=== PATIENT | female | born 1955 | race Caucasian/White ===

== ENCOUNTER 2017-05-24 11:51 | Inpatient (IN) | payer OTHER ==
[~2017-05-24] VITALS: Ht 172.7 cm; Wt 117.9 kg
--- NOTE | ~2017-05-24 | CNG ---
[facility] [place] [address] CYTO-NONGYN REPORT PROCEDURE Name: KELLE OCHOA Room #: 516-1 DIS IN M.R.#: [id number] Admission: 05/24/17 Date of : 59 Discharge: 06/03/17 Report #: [id number] Path Case #: [id number] CYTOPATHOLOGY REPORT COLLECTION DATE: 06/03/2017 RECEIVED DATE: 06/03/2017 SUBMITTING PHYS: Dr. Wilfredo Cason OTHER PHYS: CLINICAL HISTORY: Multifactorial peripheral neuropathy, generalized debility. SPECIMEN(S) RECEIVED: A.Pleural fluid * * * * * * * * * * * * FINAL DIAGNOSIS: A. Pleural fluid: - No malignant epithelial cells identified. - Reactive mesothelial cells and scattered predominantly chronic inflammatory cells present. (see comment) COMMENT: The patient has a history of invasive lobular carcinoma of the breast ([id number] and [id number]). Due to the patient's history, properly controlled immunohistochemical stains are performed on the cell block. Block A1: Calretinin - Stains the scattered mesothelial cells BerEp4 - Nonreactive CD68 - Highlights histiocytes AE1/AE3 - Highlights scattered mesothelial cells ER - No strong nuclear reactivity present There are no overtly malignant epithelial cells identified. Clinical and radiographic correlation is required. (CLW:wes; 06/05/2017) PATHOLOGIST: Claritza Beasley M.D. REPORT ELECTRONICALLY SIGNED BY: Claritza Beasley M.D. DATE/TIME: 06/05/2017 14:25 * * * * * * * * * * * * GROSS PATHOLOGY: A. Pleural fluid: The specimen is submitted unfixed, labeled "Kelle Ohcoa". Received by the Cytology Department is 25 mL of cloudy yellow fluid. One ThinPrep slide and a formalin fixed cell block were prepared. (clt 06.03.2017) AUDITOR IN CHARGE(S): FELIX Payne(ASCP) INITIAL CPT CODE(S): [address] [address] CYTO-NONGYN REPORT PROCEDURE Name: KELLE OCHOA Room #: 516[facility] IN M.R.#: [id number] Admission: 05/24/17 Date of : 59 Discharge: 06/03/17 Report #: [id number] Path Case #: [id number]; [id number], [id number], [id number], [id number] Professional services performed by [facility] [address], [place] [address] [facility] performed by [facility] at [address] [place] [address]., [address], [place] [address]. CC: Justine GREEN [facility], [address] [place] [address] PHONE: [phone] DIRECTOR: Ricci Cox M.D. * * * END OF REPORT * * *
--- NOTE | ~2017-05-24 | HC ---
[facility] [place] [address] CONSULTATION Name: KELLE COVINGTON Room #: 516-1 [facility] IN ..#: [id number] Admission: 05/24/17 Attend Phys: Wilfredo Cason MD Discharge: 06/03/17 Date of : 59 Report #: [id number] THIS REPORT FOR: //name// CC: Wilfredo Cason [facility] physician/PCP REASON FOR CONSULTATION: I was asked to evaluate concerning pneumonia and suspected parapneumonic effusion. HISTORY OF PRESENT ILLNESS: The patient was a 61-year-old with a previous history of breast cancer, hypertension, diabetes, with chronic lymphedema. She reports that about a month or two ago she developed pneumonia. Since then she has had worsening symptoms of shortness of breath and peripheral edema. Presented on 05/22/2017 to the Emergency Room with increased weakness and edema with shortness of breath. In November, she noticed sciatica and was very immobilized due to this. She then develop pneumonia that was treated as an outpatient. She has significant lymphedema and actually goes to an outpatient lymphedema clinic. Over the last several days she had had further weakening with several falls. Therefore, hospitalized for further evaluation. Now is up on the rehab unit. She remains on tamoxifen for her breast cancer, but reports no evidence of disease last checked by Oncology. She has had no cough or sputum production. Denies any fever, chills, sweats, although she remains cold. Review of systems notes no chest pain, nausea, vomiting, diarrhea, dysuria or frequency. Denies any previous cardiac history. Denies any previous nephropathy. PAST MEDICAL HISTORY: Cholecystectomy, diabetes, hypertension, gastroesophageal reflux, left breast cancer status post mastectomy and chemotherapy, now on tamoxifen. She had radiation to the chest as well. Known alcoholic cirrhosis, peripheral neuropathy. ALLERGIES: PENICILLIN, ALTHOUGH TOLERATES AMOXICILLIN; IODINE, LATEX TAPE. FAMILY HISTORY: Noncontributory. SOCIAL HISTORY: Nonsmoker, no significant alcohol intake. REVIEW OF SYSTEMS: As noted above with no additions. PHYSICAL EXAMINATION: VITAL SIGNS: She is afebrile, hemodynamically stable. GENERAL: She was alert and cooperative. She was in no acute distress. She was on oxygen per nasal cannula. She had lymphedema upper and lower extremities, abdomen. HEENT: Unremarkable. NECK: Supple. [address] [address] CONSULTATION Name: KELLE COVINGTON Room #: 516-1 [facility] IN ..#: [id number] Admission: 05/24/17 Attend Phys: Wilfredo Cason MD Discharge: 06/03/17 Date of : 59 Report #: [id number] LUNGS: Decreased breath sounds in the bases bilaterally. HEART: Regular, without murmur. ABDOMEN: Distended, nontender. I could not appreciate any masses or hepatosplenomegaly. EXTREMITIES: Right upper extremity PICC was unremarkable. 2+ lymphedema in the upper extremities and 4+ in the lower extremities with wraps in place. LABORATORY DATA: Left chest thoracentesis, 1.5 liters, fluid analysis is pending. Her sodium is 143, potassium 3.9, bicarbonate 34, creatinine 0.8, AST 40, ALT 45, alkaline phosphatase 198, bilirubin 1.1. Albumin at 2.2. INR 1.2. Hemoglobin 13.2, WBC 10.1, platelet count 141,000. Admitting urinalysis was unremarkable. Chest fluid cultures are pending. Chest x-ray shows improvement in the left pleural effusion with residual still present, predominant left-sided infiltrate persists. CT scan of the chest and ultrasound of the lower extremities pending. IMPRESSION: A 61-year-old with multisystem disease, which seems most prominent related to anasarca. She has diabetes, but no evidence of nephropathy with normal renal function and no evidence of proteinuria on urinalysis. She has no history of coronary artery disease, although she does have some hypertension. Echocardiogram has revealed normal ejection fraction with no valvular heart disease or evidence of pulmonary hypertension. Her thyroid function shows mild elevation in her TSH. Along with this has been sciatica, which has stabilized and recent pneumonia. She remains hypoxic with pulmonary infiltrates and significant effusions. I am awaiting analysis to determine if these are transudative or exudative effusions. So far no evidence to support uncontrolled infection. I would also be concerned about malignancy as a contributing factor. RECOMMENDATIONS: Would obtain further imaging studies including CT scan of her chest and abdomen. I would warrant further evaluation of these pulmonary infiltrates and be able to assess the chest wall, pleural space and intraabdominal organs. There was report in her history of cirrhosis, nonalcoholic. This may also be a factor. We will continue Levaquin pending further studies. Await imaging of her chest, abdomen and pelvis. Await analysis of her pleural effusion. Continue with diuresis and edema control as best you can. <ELECTRONICALLY SIGNED> By: Jacobo Mart MD 06/04/17 1826 1630 Jacobo Mart MD /nt
--- NOTE | ~2017-05-24 | 2DMMODE ---
[facility] [address] [place] [address] 2 D/M-MODE ECHOCARDIOGRAM Name: KELLE COVINGTON Room #: 516-1 ADM IN .R.#: [id number] Admission: 05/24/17 Attend Phys: Wilfredo Cason, Discharge: Date of : 59 Date of Service: 06/03/17 1414 Report #: [id number] THIS REPORT FOR: //name// APPROVED REPORT Study performed: 06/03/2017 13:20:25 EXAM: Comprehensive 2D, Doppler, and color-flow Echocardiogram Patient Location: Echo lab Room #: [facility] Status: routine BSA: 1.98 HR: 95 bpm BP: 156/77 mmHg Other Information Study Quality: Adequate Indications Diabetes 2D Dimensions RVDd: 27.20 mm LVEF(%): 66.41 (>50%) IVSd: 15.15 (7-11mm) LVOT Diam: 18.23 (18-24mm) LVDd: 40.27 mm PWd: 14.04 (7-11mm) Ascending Ao: 33.20 (22-36mm) LVDs: 25.69 (25-40mm) Aortic Root: 26.01 mm Etienne's LVEF: 66.41 % Volumes Left Atrial Volume (Systole) Single Plane 4CH: 23.61 mL Single Plane 2CH: 51.80 mL LA ESV Index: 20.00 mL/m2 Aortic Valve AoV Peak Josue.: 1.40 m/s AO Peak Gr.: 7.85 mmHg LVOT Max P.04 mmHg LVOT Max V: 1.58 m/s MEMO Vmax: 2.95 cm2 Mitral Valve E/A Ratio: 0.7 MV Decel. Time: 247.87 ms MV E Max Josue.: 0.72 m/s [facility] [place] [address] 2 D/M-MODE ECHOCARDIOGRAM Name: KELLE COVINGTON Room #: 516-1 ADM IN M.R.#: [id number] Admission: 05/24/17 Attend Phys: Wilfredo Cason, Discharge: Date of : 59 Date of Service: 06/03/17 1414 Report #: [id number] A Josue.: 1.06 m/s MV PHT: 71.88 ms IVRT: 103.81 ms Pulmonary Valve PV Peak Josue.: 1.18 m/s PV Peak Gr.: 5.58 mmHg Pulmonary Vein P Vein S: 0.84 m/s P Vein A: 0.33 m/s P Vein D: 0.43 m/s P Vein A Dur.: 124.6 msec P Vein S/D Ratio: 1.95 Tricuspid Valve TR Peak Josue.: 2.67 m/s TR Peak Gr.: 28.46 mmHg Left Ventricle The left ventricle is normal size. Mild to moderate concentric left ventricular hypertrophy. The left ventricular systolic function is normal. The left ventricular ejection fraction is within the normal range. LVEF is 65-70%. Mild diastolic dysfunction is present (impaired relaxation pattern). Right Ventricle The right ventricle is normal size. The right ventricular systolic function is normal. Atria The left atrium size is normal. The right atrium size is normal. Aortic Valve Mild aortic valve sclerosis. No aortic regurgitation is present. There is no aortic valvular stenosis. Mitral Valve Mild mitral annular calcification. There is no mitral valve regurgitation noted. No evidence of mitral valve stenosis. Tricuspid Valve The tricuspid valve is normal in structure. Mild tricuspid regurgitation. PAP is estimated at 29 mmHg + RA pressure. Pulmonic Valve The pulmonary valve is normal in structure. There is no pulmonic valvular regurgitation. [address] [address] 2 D/M-MODE ECHOCARDIOGRAM Name: KELLE COVINGTON Room #: 516-1 [facility] IN [facility]#: [id number] Admission: 05/24/17 Attend Phys: Wilfredo Cason, Discharge: Date of : 59 Date of Service: 06/03/17 1414 Report #: [id number] Great Vessels The aortic root is normal in size. IVC is not visualized. Pericardium There is no pericardial effusion. <Conclusion> The left ventricle is normal size. LVEF is 65-70%. Mild aortic valve sclerosis. No aortic regurgitation is present. There is no aortic valvular stenosis. Mild mitral annular calcification. There is no mitral valve regurgitation noted. The tricuspid valve is normal in structure. Mild tricuspid regurgitation. PAP is estimated at 29 mmHg + RA pressure. The pulmonary valve is normal in structure. There is no pericardial effusion. <ELECTRONICALLY SIGNED> By: Lázaro Dillon MD 06/03/17 1414 1414 1414 Lázaro Dillon MD /INF
--- NOTE | ~2017-05-24 | H ---
[facility] [place] [address] HISTORY AND PHYSICAL Name: KELLE COVINGTON Room #: 516-1 ADM IN M.R.#: [id number] Admission: 05/24/17 Attend Phys: Wilfredo Cason MD Discharge: Date of : 59 Report #: [id number] THIS REPORT FOR: //name// CC: Wilfredo Cason [facility] physician/PCP DATE OF SERVICE: 05/24/2017 HISTORY AND PHYSICAL/POST-ADMISSION PHYSICIAN EVALUATION HISTORY OF PRESENT ILLNESS: The patient is a 61-year-old white female, who was admitted to [facility]. The patient has a history of chronic lower extremity edema, multifactorial, peripheral neuropathy, which she relates back to some chemotherapy she had had after her breast cancer as well as a component of diabetic peripheral neuropathy. The patient has been ambulatory utilizing a walker and has had problems with recent pneumonia and worsening lower extremity weakness and falls. She has had the fire department over 3 times in the last month and lay on the floor for approximately 2 hours. She was having difficulty getting up off low lying surfaces and has had a significant functional decline. 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 She has now been admitted for acute in-hospital inpatient rehabilitation. PAST MEDICAL HISTORY: Breast cancer with mastectomy, nonalcoholic cirrhosis per PET scan, insulin-dependent diabetes mellitus, hypertension, anxiety, obesity, controlled GERD. HABITS: No history of tobacco or alcohol abuse. ALLERGIES: PENICILLIN, IODINE, LATEX AND TAPE. SOCIAL HISTORY: Lives in a house, 2 steps in, alone. She does have someone who comes by weekly to assist with laundry and housekeeping. 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 REVIEW OF SYSTEMS: No current complaints of chest pain, shortness of breath, or abdominal discomfort. She does have decreased sensation of her distal lower extremities consistent with her peripheral neuropathy and complains of overall weakness and difficulty getting up from lower lying positions. PHYSICAL EXAMINATION: GENERAL: Pleasant, overweight 61-year-old white female, in no obvious distress. She has been sleeping in a recliner, was seen earlier, in no distress. VITAL SIGNS: Last recorded temperature 36.8, pulse 102, respirations 18, blood [facility] [address] [place] [address] HISTORY AND PHYSICAL Name: KELLE COVINGTON Room #: 61 ADM IN .R.#: [id number] Admission: 05/24/17 Attend Phys: Wilfredo Cason MD Discharge: Date of : 59 Report #: [id number] pressure 134/71. HEENT: Facies appeared symmetric. CHEST: Overall, sounded clear with some diffuse decreased breath sounds throughout. CARDIAC: Sounded regular rate and rhythm. ABDOMEN: Obese. Bowel sounds positive. Nontender. GENITOURINARY AND RECTAL: Deferred. EXTREMITIES: Upper extremity, she has functional range of motion, strength is grade 4-/5, DTRs are trace to 1. Lower extremity, she has significant 3+ pitting edema to bilateral lower extremities with significant obesity. In her lower extremity, she has distal decreased sensation consistent with peripheral neuropathy and strength is grade 3+/5. She has been max assist with [id number] and gait was 15 feet mod assist with a front-wheeled walker. ASSESSMENT: A 61-year-old white female with the following problem list: 1. Multifactorial peripheral neuropathy. 2. Frequent falls with calls to the fire department. 3. Lower extremity lymphedema. 4. Right foot ulcer. 5. Diabetes mellitus type 2. 6. Breast cancer with prior mastectomy and chemoradiation. 7. Sacrococcygeal skin, which we are closely monitoring. PLAN: The patient is involved in the inpatient rehabilitation program. From a post-admission physician evaluation perspective, there are no relevant changes since the preadmission screening. Please see the above review of prior medical and functional conditions and comorbidities. Please see the patient's previous and current functional status. As far as risk of complications, the patient has multiple medical comorbidities as noted above. Initial plan of care involves the interdisciplinary acute inpatient rehabilitation program with goal of maximizing the patient's functional independence so that she can hopefully return back to her prior living situation. Prognosis is reasonably good with estimated length of stay probably at least 10 days to 14 days pending progress. We will have the interdisciplinary acute inpatient rehabilitation team involved. The wound care team is involved as well with the wound care nurse following regarding the foot ulcer as well as assisting nursing with monitoring her buttock area and proper management and skin prophylaxis. We will also be having the practice management consultant physicians continue to follow the patient on the acute inpatient rehab [facility]. Goal is to improve her strength and endurance, overall [address] [address] HISTORY AND PHYSICAL Name: KELLE COVINGTON Room #: 516-1 ADM IN M.R.#: [id number] Admission: 05/24/17 Attend Phys: Wilfredo Cason MD Discharge: Date of : 59 Report #: [id number] independence, so she can return back to the home setting safely without having all these calls to the fire department. <ELECTRONICALLY SIGNED> By: Wilfredo Cason MD 05/31/17 1408 0802 0943 Wilfredo Cason MD /nt
--- NOTE | ~2017-05-24 | PLAN ---
[facility] [place] [address] REHAB UNIT PLAN OF CARE Name: KELLE COVINGTON Room #: 516-1 ADM IN M.R.#: [id number] Admission: 05/24/17 Attend Phys: Wilfredo Cason MD Discharge: Date of : 59 Report #: [id number] THIS REPORT FOR: //name// CC: Wilfredo Cason [facility] physician/PCP DATE OF SERVICE: 05/27/2017 PROGRESS NOTE/OVERALL PLAN OF CARE SUBJECTIVE: The patient was seen back today in followup. She is in no distress. Last recorded temperature is 36.7, pulse 117, respirations 18, blood pressure 136/81. Lower extremities are wrapped. She does have significant obesity with an abdominal pannus. Transfers are mod assist with sit to stand. Once up, she is ambulating min assist 125 feet with a front-wheeled walker. In occupational therapy, she is dependent for lower body dressing. She does have decreased distal sensation. ASSESSMENT: 1. Multifactorial peripheral neuropathy. 2. Lower extremity lymphedema. 3. Frequent falls with calls to the fire department. 4. Right foot ulcer. 5. Diabetes mellitus type 2. 6. Breast cancer with prior mastectomy and chemoradiation. 7. Sacral coccygeal skin, which is being closely monitored. PLAN: The overall plan of care is based on the preadmission screen, post-admission physician evaluation and information garnered from therapy assessments. 1. Estimated length of stay is probably at least 10-14 days pending progress. 2. Medical prognosis is reasonably good. 3. Anticipated interventions includes the interdisciplinary acute inpatient rehabilitation program. 4. Anticipated functional outcomes would be for the patient to become modified independent with transfers, mobility and ADLs so the patient hopefully return back to her prior living situation. 5. Discharge destination is back home where she lives in a house. 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 6. Expected therapy by discipline includes PT and OT. 1-1/2 hours per day each 5 days a week throughout the duration of the acute inpatient rehabilitation stay. <ELECTRONICALLY SIGNED> By: Wilfredo Cason MD 05/31/17 1409 0841 1233 Wilfredo Cason MD /[facility]
--- NOTE | ~2017-05-24 | HC ---
[facility] [place] [address] CONSULTATION Name: KELLE COVINGTON Room #: 516-1 [facility] IN M.R.#: [id number] Admission: 05/24/17 Attend Phys: Wilfredo Cason MD Discharge: 06/03/17 Date of : 59 Report #: [id number] THIS REPORT FOR: //name// CC: Wilfredo Cason [facility] physician/PCP DATE OF SERVICE: 06/03/2017 REASON FOR CONSULTATION: Pleural effusion. IMPRESSION: 1. Bilateral pleural effusion, left tap today. 2. Hypoxemia. 3. Elevated D-dimer. 4. History of breast cancer. 5. Hypertension. 6. Lymphedema. PLAN: CT PE protocol, venous Doppler of lower extremities, may also have ascites, may need retap. HISTORY OF PRESENT ILLNESS: A 61-year-old female admitted to hospital with progressive weakness, falls in the last month. The patient today was found to have an elevated D-dimer. Thoracentesis was done, CT was ordered. The patient relates doing somewhat better after thoracentesis, but relates she has had increasing swelling in legs, abdomen and progressive shortness of breath over months. CURRENT MEDICATIONS: Include heparin, Levaquin, DuoNeb, spironolactone, metoprolol, Protonix, Nolvadex. SOCIAL HISTORY: Negative tobacco or ETOH. PAST SURGICAL HISTORY: Include mastectomy, cholecystectomy, right chest Port-A-Cath, fistulotomy. ALLERGIES: PENICILLIN, IODINE, LATEX AND TAPE. REVIEW OF SYSTEMS: Nonalcoholic cirrhosis per PET scan, diabetes, hypertension, anxiety, obesity, GERD, history of sciatica, UTI, yeast infections. PHYSICAL EXAMINATION: VITAL SIGNS: Temperature 98.4, pulse 85, respirations 20, BP 156/77. EYES: Negative icterus. NECK: Negative JVD. LUNGS: Showed decreased breath sounds bilaterally. [facility] [address] [place] [address] CONSULTATION Name: KELLE COVINGTON Room #: 516-1 [facility] IN [facility]#: [id number] Admission: 05/24/17 Attend Phys: Wilfredo Cason MD Discharge: 06/03/17 Date of : 59 Report #: [id number] HEART: Distant. ABDOMEN: Distended, bowel sounds present. EXTREMITIES: Wrapped, definite orthopnea. D-dimer . Chest x-ray post-thoracentesis showed moderate residual effusion. Echo showed a PAP of 29, EF of 65-70. We will follow closely with you. By: [id number] Carolyn Chamberlain MD /nt
--- NOTE | ~2017-05-24 | HC ---
[facility] [place] [address] CONSULTATION Name: KELLE COVINGTON Room #: 516-1 ADM IN M.R.#: [id number] Admission: 05/24/17 Attend Phys: Wilfredo Cason MD Discharge: Date of : 59 Report #: [id number] THIS REPORT FOR: //name// CC: Wilfredo Cason FAM physician/PCP DATE OF SERVICE: 06/01/2017 ATTENDING PHYSICIAN: Wilfredo Cason MD WET PROCESS HEAD MILLER: Rafita Kendrick PhD CLINICAL PRESENTATION: The patient is a 61-year-old female admitted to the [facility] Rehab Unit for a comprehensive inpatient rehabilitation program to improve functional mobility and activities of daily living and self-care secondary to deficits from a multifactorial peripheral neuropathy. She has had frequent falls, which have required assistance from the fire department to maintain mobility and to get into a standing position. Diagnoses also include lower extremity lymphedema, right foot ulcer, diabetes mellitus type 2, breast cancer status post mastectomy, chemoradiation, and sacrococcygeal. A complete description of her medical condition and history can be found in her medical record. Neuropsychological consultation was requested to provide assistance in the assessment of cognitive and emotional status and to provide recommendations and services. Prior to this most recent medical event, she was living independently in her own home. The patient is a high school graduate. 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 She has no children. The patient has 1 brother. She does not report any prior history of treatment for mood disorder or substance use. Family history of depression in her mother is reported. The patient was independent with instrumental activities of daily living including driving. TECHNIQUES UTILIZED: Clinical interview, review of medical records, staff consultation and behavioral observation, mini-mental status exam 2 standard version, clock drawing and verbal fluency assessment (category and letter). EXAMINATION FINDINGS: The patient was alert and cooperative with the assessment. She accurately described events surrounding her admission. There is no evidence of aphasia. Her thoughts are logical and goal oriented. There is no evidence of thought disorder. She does not report auditory or visual hallucinations. There is no suicidal ideation. She describes her symptoms to include sleep, appetite, anxiety and depression. Decreasing cognition is noted with problems in memory and word finding. [facility] [address] [place] [address] CONSULTATION Name: KELLE COVINGTON Room #: 516-1 [facility] IN [facility].#: [id number] Admission: 05/24/17 Attend Phys: Wilfredo Cason MD Discharge: Date of : 59 Report #: [id number] Her performance on the MMSE 2 brief version is within normal limits with a raw score of 15 of 16. She was 3 of 3 for initial registration, 5 of 5 for orientation to time and place. She was 2 of 3 for immediate recall of 3 items after a brief time delay and distraction. The MMSE 2 standard version was within normal limits with a raw score 27 of 30. She was 4 of 5 for serial 7's. The patient had difficulty in copying a simple geometric design. Clock drawing was very poor. The patient was unable to accurately space numbers within the clock and was not able to accurately set the hands at a designated time. Suggested by clock drawing is a left neglect and executive dysfunction. Category fluency is within normal limits with a raw score of 28 and T score of 52. Letter fluency was in the low average range with a T score of 39 and percentile rank of 14. Suggested in her performance is impaired visual spatial organization and executive functioning. DIAGNOSTIC IMPRESSION: Mild neurocognitive disorder, unspecified, without behavior disorder. Unspecified anxiety disorder with depression. RECOMMENDATIONS: The patient will benefit from continued assistance in cognitive compensation strategies primarily for executive functioning. Visual spatial organization will also benefit from assistance in compensation for left neglect. Further Neuropsych assessment is indicated to clarify the severity of cognitive disorder. The patient may want to consider short-term disability until her return of neurocognitive functioning can be established. Thank you very much for me to provide the consultation on this patient. <ELECTRONICALLY SIGNED> By: Rafita Kendrick, PhD 06/02/17 1623 1634 10 Rafita Kendrick, PhD /nt
[~2017-05-24 11:51] MED LIST: ALPHA LIPOIC A100 MG PO; AVALIDE 150-121 EACH PO; COZAAR 25 MG TA25 M1 PO; DIFLUCAN150 M1 PO; ENOXAPARIN40 MG/0.1 SUBQ; HUMALOG100 UNIT/1 SUBQ; HYDROCODONE-AP1 EAC6 PO; IBUPROFEN 200200 M1 PO; JANUMET XR 50-1 EAC1 PO; L-GLUTAMINE25 G1 PO; L-GLUTAMINE500 MG PO; LANTUS100 UNIT/M INJ; LEVAQUIN 500 M500 MG PO; LEVEMIR SUBQ; LISINOPRIL10 MG PO; METFORMIN HCL500 MG PO; NITROGLYCERIN; NOLVADEX20 MG PO; NORCO 7.5-3251 EACH PO; NORFLEX100 MG PO; NOVOLOG100 UNIT/1; NOVOLOG100 UNIT/1 INJ; NOVOLOG100 UNIT/1 SUBQ; PRAVACHOL20 MG PO; PREDNISONE 10 M10 MG PO; PRILOSEC20 MG PO; SENNA-DOCUSATE1 EACH PO; SENOKOT-S1 TA1 PO; STOOL SOFTENER100 MG PO; TYLENOL325 MG PO; VITAMIN B-625 MG PO; ZOFRAN ODT4 MG PO; [UNRECOGNIZED DRUG - OTHER] TOP; [UNRECOGNIZED DRUG - OTHER] TOP
[2017-05-24 13:15] VITALS: BP 148/82
[2017-05-24 20:07] VITALS: BP 134/71
[2017-05-25 09:07] VITALS: BP 146/72
[2017-05-25 15:30] LABS: HEMATOCRIT 40.9 % (37.0-47.0); HEMOGLOBIN 13.5 gm/dL (12.0-15.0); MCH 29.3 pg (26.0-34.0); MCV 88.9 fL (80.0-100.0); RBC 4.6 mil/uL (4.20-5.00); RDW 19.1 % (10.5-14.5); WBC 9.4 thou/uL (4.0-11.0)
[2017-05-25 15:39] LABS: CALCIUM 10.6 mg/dL (8.5-10.1); CREATININE 0.7 mg/dL (0.6-1.0); POTASSIUM 3.8 mmol/L (3.5-5.1)
[2017-05-25 20:02] VITALS: BP 140/81
[2017-05-26 08:00] VITALS: BP 155/83
[2017-05-26 19:54] VITALS: BP 136/81
[2017-05-27 06:36] LABS: ABSOLUTE NEUTROPHILS 7.6 thou/uL (1.4-8.2); BASOPHILS 0.3 % (0.0-2.0); EOSINOPHILS 0.7 % (0.0-3.0); HEMATOCRIT 41.8 % (37.0-47.0); HEMOGLOBIN 13.9 gm/dL (12.0-15.0); LYMPHOCYTES 12.3 % (24.0-44.0); MCHC 33.4 g/dL (28.0-37.0); MCV 89.8 fL (80.0-100.0); MONOCYTES 9.9 % (1.0-8.0); PLATELET COUNT 151 thou/uL (150-400); POLYS 76.8 % (36.0-66.0); RBC 4.65 mil/uL (4.20-5.00); RDW 19.4 % (10.5-14.5); WBC 9.9 thou/uL (4.0-11.0)
[2017-05-27 06:52] LABS: CALCIUM 11.3 mg/dL (8.5-10.1); CREATININE 0.6 mg/dL (0.6-1.0); POTASSIUM 4.1 mmol/L (3.5-5.1)
[2017-05-27 07:20] VITALS: BP 158/82
[2017-05-27 19:56] VITALS: BP 135/69
[2017-05-28 07:50] VITALS: BP 155/55
[2017-05-28 20:34] VITALS: BP 164/83
[2017-05-29 07:33] VITALS: BP 142/69
[2017-05-29 19:54] VITALS: BP 142/90
[2017-05-30 08:20] VITALS: BP 147/58
[2017-05-30 20:36] VITALS: BP 154/83
[2017-05-31 08:41] VITALS: BP 145/83
[2017-05-31 19:26] VITALS: BP 147/84
[2017-06-01 05:45] LABS: ALBUMIN 2.2 g/dL (3.4-5.0); CREATININE 0.8 mg/dL (0.6-1.0); MAGNESIUM 1.9 mg/dL (1.8-2.4); POTASSIUM 3.9 mmol/L (3.5-5.1); TOTAL BILIRUBIN 1.1 mg/dL (<0.1-1.0); TOTAL PROTEIN 6.6 g/dL (6.4-8.2)
[2017-06-01 08:20] VITALS: BP 152/69
[2017-06-01 21:47] VITALS: BP 143/82
[2017-06-02 08:30] VITALS: BP 136/93
[2017-06-02 19:20] VITALS: BP 148/81
[2017-06-03 05:23] LABS: HEMATOCRIT 40.2 % (37.0-47.0); HEMOGLOBIN 13.2 gm/dL (12.0-15.0); MCH 29.9 pg (26.0-34.0); MCHC 32.8 g/dL (28.0-37.0); RBC 4.42 mil/uL (4.20-5.00); RDW 20.3 % (10.5-14.5); WBC 10.1 thou/uL (4.0-11.0)
[2017-06-03 08:35] VITALS: BP 156/77
[2017-06-03 11:03] LABS: INR 1.2; PROTIME 12.3 Seconds (9.3-11.4)
[2017-06-03 14:46] LABS: SOURCE LEFT CHEST
[2017-06-03 14:47] LABS: CLARITY CLOUDY; COLOR YELLOW; SOURCE LEFT CHEST; TOTAL VOLUME 60 mL
[2017-06-03 15:11] LABS: BF NUCLEATED CELLS 169; BF RBC 4019
[2017-06-03 16:08] LABS: BF MACROPHAGE 55; BF NEUTROPHILS 9
[2017-06-03 18:20] LABS: ABSOLUTE NEUTROPHILS 11.7 thou/uL (1.4-8.2); BASOPHILS 0.2 % (0.0-2.0); EOSINOPHILS 0.1 % (0.0-3.0); HEMATOCRIT 41.3 % (37.0-47.0); HEMOGLOBIN 13.3 gm/dL (12.0-15.0); MCH 29.3 pg (26.0-34.0); MCHC 32.3 g/dL (28.0-37.0); MCV 90.9 fL (80.0-100.0); MONOCYTES 8.9 % (1.0-8.0); PLATELET COUNT 133 thou/uL (150-400); POLYS 85.8 % (36.0-66.0); RBC 4.55 mil/uL (4.20-5.00); RDW 19.7 % (10.5-14.5); WBC 13.6 thou/uL (4.0-11.0)
[2017-06-03 18:27] LABS: CALCIUM 11.5 mg/dL (8.5-10.1); CREATININE 0.7 mg/dL (0.6-1.0); POTASSIUM 4.4 mmol/L (3.5-5.1)
[2017-06-03 18:32] LABS: ALBUMIN 2.1 g/dL (3.4-5.0); TOTAL BILIRUBIN 1.7 mg/dL (<0.1-1.0); TOTAL PROTEIN 6.3 g/dL (6.4-8.2)
[2017-06-03] MEDS ORDERED: ALDACTONE25 MG PO (18:57)
[2017-06-03] MEDS ORDERED: TOPROL XL25 MG PO (18:57)
[2017-06-03] MEDS ORDERED: HEPARIN SO1000 UNIT/ IV PUSH (18:57)
[2017-06-03] MEDS ORDERED: NYAMYC15 GM TOP (18:57)
[2017-06-03] MEDS ORDERED: COLACE100 MG PO (18:57)
[2017-06-03] MEDS ORDERED: PROTONIX40 M1 PO (18:57)
[2017-06-03] MEDS ORDERED: DUONEB 2.5-0.5 M3 ML INH (18:57)
[2017-06-03] MEDS ORDERED: LEVAQUIN 750 M750 MG PO (19:19)
[2017-06-04 11:10] LABS: BODY FLUID ALBUMIN 1.2 g/dL (()); BODY FLUID AMYLASE 15 U/L (()); BODY FLUID GLUCOSE 171 mg/dL (()); BODY FLUID LDH 77 IU/L (())
[2017-06-05 18:10] LABS: HISTOPLASMA MYCELIAL-ID Negative (Negative)
== END 2017-06-03 20:24 | disposition short-term general hospital (02) | DRG 73 ==
PROVIDERS: Family Medicine; Internal Medicine Pulmonary Disease; Nurse Practitioner; Physical Medicine & Rehabilitation; Specialist
DX: E11.42 Type 2 diabetes mellitus with diabetic polyneuropathy (principal); J18.9 Pneumonia, unspecified organism; I26.99 Other pulmonary embolism without acute cor pulmonale; J90 Pleural effusion, not elsewhere classified; I82.409 Acute embolism and thrombosis of unspecified deep veins of unspecified lower extremity; I10 Essential (primary) hypertension; E66.9 Obesity, unspecified; K21.9 Gastro-esophageal reflux disease without esophagitis; G62.89 Other specified polyneuropathies; I89.0 Lymphedema, not elsewhere classified; E11.621 Type 2 diabetes mellitus with foot ulcer; L97.519 Non-pressure chronic ulcer of other part of right foot with unspecified severity; E78.5 Hyperlipidemia, unspecified; R53.81 Other malaise; G31.84 Mild cognitive impairment of uncertain or unknown etiology; F41.8 Other specified anxiety disorders; R09.02 Hypoxemia; D69.6 Thrombocytopenia, unspecified; K70.31 Alcoholic cirrhosis of liver with ascites; Z85.3 Personal history of malignant neoplasm of breast; Z68.39 Body mass index [BMI] 39.0-39.9, adult; Z88.0 Allergy status to penicillin; Z91.041 Radiographic dye allergy status; Z91.040 Latex allergy status; Z91.81 History of falling; Z87.01 Personal history of pneumonia (recurrent); Z90.49 Acquired absence of other specified parts of digestive tract; Z90.12 Acquired absence of left breast and nipple; Z92.21 Personal history of antineoplastic chemotherapy; Z92.3 Personal history of irradiation; Z79.4 Long term (current) use of insulin
CPT/HCPCS: 10112; 27001

== ENCOUNTER 2017-06-03 21:07 | Inpatient (IN) | payer OTHER ==
[~2017-06-03] VITALS: Ht 172.7 cm; Wt 114.8 kg
--- NOTE | ~2017-06-03 | DEA ---
[facility] [place] [address] SUMMARY Name: KELLE COVINGTON Room #: 358-P [facility] IN M.R.#: [id number] Admission: 06/03/17 Attend Phys: Remy Hogue DO Discharge: 06/10/17 Date of : 59 Report #: [id number] THIS REPORT FOR: //name// CC: RACH physician/PCP Remy Hogue DATE OF SERVICE: 06/10/2017 TIME OF : 1855 hours on 06/10/2017. HOSPITAL COURSE: The patient is a 61-year-old female who is a patient of Dr. Cabrera with a history of breast cancer, history of being on tamoxifen after receiving chemotherapy, was admitted due to recurrent falls at home. She was previously on rehabilitation prior to readmission when she had recurrent ascites as well as pleural effusions and the patient became progressively dyspneic. CT angio of the chest showed nonocclusive intraluminal filling defects, pulmonary embolism, anterior, posterior segmental branch of the right lower lobe. She also had varicosities of the trunk of the liver compatible with cirrhosis, possible diffuse lytic lesions in T3 region of her spine. Her arterial blood gases were also worse with a pH of 7.267, pO2 was 77, O2 was 70.7 on 10 liters nasal cannula. Due to the worsening condition and the unlikeliness of her condition improving, after lengthy discussion with the patient and her DPOA, it was decided to provide comfort care measures only. The patient did pass away peacefully at the above date and time. Body was released to the family for processing. By: 1735 1812 Remy Hogue, /nt
--- NOTE | ~2017-06-03 | CNG ---
[facility] [place] [address] CYTO-NONGYN REPORT PROCEDURE Name: KELLE OCHOA Room #: 358-P ADM IN M.R.#: [id number] Admission: 06/03/17 Date of : 59 Discharge: Report #: [id number] Path Case #: [id number] CYTOPATHOLOGY REPORT COLLECTION DATE: 06/05/2017 RECEIVED DATE: 06/05/2017 SUBMITTING PHYS: Dr. Carolyn Chamberlain OTHER PHYS: Dr. Remy Hogue CLINICAL HISTORY: Shortness of air, pulmonary embolism, debility, hypoxemia, HCAP SPECIMEN(S) RECEIVED: A.Pleural fluid * * * * * * * * * * * * FINAL DIAGNOSIS: A. Pleural fluid: - Negative for malignant cells. - Reactive mesothelial cells along with acute and chronic inflammatory cells. COMMENT: Examination shows markedly enlarged cells with atypical nuclei and a low nuclear to cytoplasmic ratio. Occasional cytoplasmic bridges are identified. Due to the history of lobular carcinoma ([id number], please see separate report for complete details) immunohistochemical stains are performed. (Cell block) BerEP4 - Nonreactive Calretinin - Reactive within the mesothelial cells CD68 - Numerous macrophages present along with the inflammatory cells Findings support the diagnosis rendered. (IUV:pit; 06/07/2017) PATHOLOGIST: Kae Renner M.D. REPORT ELECTRONICALLY SIGNED BY: Kae Renner M.D. DATE/TIME: 06/07/2017 13:24 * * * * * * * * * * * * GROSS PATHOLOGY: A. Pleural fluid: The specimen is submitted unfixed, labeled "Kelle Ochoa". Received by the Cytology Department is 35 mL of cloudy yellow fluid. One ThinPrep slide and a formalin fixed cell block were prepared. (06.05.2017) RESIDENTIAL TECH(S): FELIX Aguila(ASCP) INITIAL CPT CODE(S): A; 40997, 20953, 46491, [address]35, [address] [address] CYTO-NONGYN REPORT PROCEDURE Name: KELLE OCHOA Room #: 358-P ADM IN M.R.#: [id number] Admission: 06/03/17 Date of : 59 Discharge: Report #: [id number] Path Case #: [id number] Professional services performed by [facility] [address], [place] [address] [facility] by [facility] at [address] [place] [address]., [address], [place] [address]. [address], [facility] [address] [place] [address] PHONE: [phone] DIRECTOR: Ricci Cox M.D. * * * END OF REPORT * * *
--- NOTE | ~2017-06-03 | HC ---
[facility] [place] [address] CONSULTATION Name: KELLE COVINGTON Room #: 358-P ADM IN M.R.#: [id number] Admission: 06/03/17 Attend Phys: Remy Hogue DO Discharge: Date of : 59 Report #: [id number] THIS REPORT FOR: //name// CC: RACH physician/PCP Remy Hogue DO GLENNA CHEW REQUESTING PHYSICIAN: Dr. Chew. CHIEF COMPLAINT: Breast cancer. HISTORY OF PRESENT ILLNESS: The patient is a 61-year-old female who has a patient of Dr. Chew, outpatient, who has a history of breast cancer, has been on tamoxifen after receiving chemotherapy, was admitted due to recurrent falls at home. She had needed to get up. She had several falls over the last month. She was previously on rehabilitation prior to readmission, had noticed to have recurrent ascites as well as pleural effusion, became progressively dyspneic. CT angio of her chest yesterday showed a nonocclusive intraluminal filling defect, pulmonary embolism, anterior, posterior segmental branches of right lower lobe. Also the patient had a shrunken liver with prominent varicosities compatible with cirrhosis, possible also diffuse lytic lesions in T3, also ground glass appearances in the upper lobes bilaterally. Also had sacral decubitus ulcer. At this current point in time, she has worsening overall laboratory exam including a pH of 7.267, CO2 was 77.0, O2 was 70.7. This was on 10 liters nasal cannula. I was able to speak with the patient today. She was answering questions in appropriate manner to several different lines of questioning. I was able to assess that she was responding appropriately; however, she was not able to respond in a verbal way. It was only with head nods. She reports she has shortness of breath and chest pain as well, but she reports that she does not desire medication at this current point in time. PAST MEDICAL HISTORY: Significant for pulmonary emboli, right popliteal clot, pneumonia recently, history of hypertension, diabetes, gastroesophageal reflux disease, likely metastatic breast cancer, cirrhosis. PAST SURGICAL HISTORY: Left mastectomy in November 2013, cholecystectomy. MEDICATIONS: Previously in the hospital, she was on Lovenox, spironolactone, metoprolol, insulin, Protonix, Levaquin, DuoNebs, Colace, Senokot, tamoxifen, nitroglycerin. ALLERGIES: PENICILLIN, IODINE, LATEX TAPE. FAMILY HISTORY: Noncontributory. [facility] [address] [place] [address] CONSULTATION Name: KELLE COVINGTON Room #: 358-P [facility] IN .R.#: [id number] Admission: 06/03/17 Attend Phys: Remy Hogue DO Discharge: Date of : 59 Report #: [id number] SOCIAL HISTORY: The patient's power of finance attorney include her finance attorney and a friend. REVIEW OF SYSTEMS: Again, denies any current unable to obtain majority reports the pain, but denies significant enough to require medications. Does report dyspnea. Denies particular other concerns at this time. PHYSICAL EXAMINATION: VITAL SIGNS: Temperature 36.8, pulse 101, respirations 18, blood pressure 126/60, 96% on 10 liters nasal cannula. GENERAL: She does alert to verbal stimuli. She is oriented to person. It is difficult to assess her other orientation, but she answers questions appropriately on many lines of questioning that would be consistent with her having appropriate response to this. HEENT: Extraocular muscles are intact. No scleral icterus, no conjunctival injection. CARDIOVASCULAR: Tachycardic, otherwise regular rate and rhythm. RESPIRATORY: She appears to be in moderate respiratory distress at this time, but currently she did not have any accessory muscle use. She appears to be drowsy. ABDOMEN: Soft, nontender to palpation x 4. LABORATORY DATA: These include ammonia 43, hemoglobin 11.9, white blood cell 10.7, platelets 112, creatinine 0.9. ASSESSMENT AND PLAN: 1. Acute hypercapnic respiratory failure, unfortunately, worsening. I did discuss directly with the patient with regards to her code status: I discussed the option to intubate and discussed if she would want that without discussing risk or benefits. The patient immediately declined. I again discussed this in light of the possibility of without using this. I also brought in nursing staff to confirm this with me. The patient did respond appropriately to several other lines of questioning prior to asking her question again. She again declined intubation. Again, CPR was asked of the patient because I did tell her that it was highly likely that arrhythmia would be the ultimate cause of her given the respiratory failure. The patient declined to have CPR at this time. Also discussed the possibility of palliative care. It appeared the patient did not desire medication to be administered at this time. I did discuss if worsening overall condition if she would prefer to have medications to make her comfortable, she did consent to this. At this time, I have written for morphine and Ativan, have held off on any anticholinergics. I do believe it would be most beneficial for these first 2 medications to be used in the event of worsening overall condition. I did discuss the possibility of using BiPAP again. The patient declined to use BiPAP as well. She desired to stay on nasal cannula. I did discuss with her that this would likely lead to her eventual . She voiced understanding of this and desired as the only respiratory [facility] [address] [place] [address] CONSULTATION Name: KELLE COVINGTON Room #: 358-P ADM IN M.R.#: [id number] Admission: 06/03/17 Attend Phys: Remy Hogue DO Discharge: Date of : 59 Report #: [id number] intervention at this time. Spent approximately 25 minutes on discussion of advanced care planning directly with the patient and discussed with nurse and case planner separately. I believe the patient is in a very critical state and is likely to benefit from inpatient palliative care at this time given her decisions. Both Pulmonary and primary team have been informed of this decision process. 2. Breast cancer. Overall contributing to this diagnosis and her hypercapnic respiratory failure, likely to her both pleural effusion and ascites. I appreciate Dr. Chew's consultation and his recommendations with regards to her care. I do believe she is a palliative care candidate for this time. I provided medications, although I have not changed the course of her other medications unless she has worsening overall condition at which time we will consider stopping all those that are not associated with comfort. 3. Pulmonary embolism again contributing to above. At this current point in time, we are keeping her other treatments, but will have medications in the event of worsening overall respiratory failure. 4. Cirrhosis also contributing to above diagnoses. Again, palliative care likely to be pursued given that she is likely to decline on only oxygen therapy. I will continue to follow with this patient's care and feel free to contact me at any time if there is any change in condition. Thank you very much for the consultation. By: 1544 06 Lonnie August DO /nt
--- NOTE | ~2017-06-03 | HC ---
[facility] [place] [address] CONSULTATION Name: KELLE COVINGTON Room #: 358-P [facility] IN M.R.#: [id number] Admission: 06/03/17 Attend Phys: Remy Hogue DO Discharge: Date of : 59 Report #: [id number] THIS REPORT FOR: //name// CC: RACH physician/PCP Remy Hogue DATE OF SERVICE: 06/04/2017 PERSONAL PHYSICIAN: None on staff. CHIEF COMPLAINT: Lower extremity edema and right foot ulcer and left ischial ulcer. HISTORY OF PRESENT ILLNESS: This is a 61-year-old white female who has a history of chronic lymphedema and is currently hospitalized for generalized debility and pulmonary embolism, has been treated as an outpatient in the lymphedema clinic with lymphedema wraps for chronic edema with associated weeping. The patient has been seen while as an inpatient by the wound care nurse. However, the weeping has gotten to a point where the wound care nurse asked if I would evaluate the patient as well. The patient states she has a longstanding history of weeping edema. The patient also now because of the generalized debility and recent immobility with her mainly sitting in a chair for prolonged periods of times for several days in a row, she has developed an ulceration in her left ischial tuberosity region as well as has a chronic ulcer on her right dorsal foot. I have been asked to assist in the care of these ulcers at that time. PAST MEDICAL HISTORY: Significant for diabetes; breast cancer; hypertension; lymphedema; pneumonia; pulmonary embolism; cirrhosis of the liver, nonalcoholic; and gastroesophageal reflux disease. PAST SURGICAL HISTORY: As previous for mastectomy, radiation therapy to the breast site and cholecystectomy. CURRENT MEDICATIONS: Multiple, I reviewed the patient's medication list. DRUG ALLERGIES: PENICILLIN, IODINE, LATEX AND TAPE. SOCIAL HISTORY: The patient does not smoke or drink alcohol. Resided independently prior to this hospitalization. FAMILY HISTORY: Not pertinent to current medical condition. REVIEW OF SYSTEMS: CONSTITUTIONAL: The patient denies fevers or chills. NEUROLOGIC: The patient with overall generalized weakness, but no isolated [address] [address] CONSULTATION Name: KELLE COVINGTON Room #: 358-P [facility] IN M.R.#: [id number] Admission: 06/03/17 Attend Phys: Remy Hogue DO Discharge: Date of : 59 Report #: [id number] weakness in arms or legs. EYES: No complaints. ENT: No complaints. CARDIAC: The patient has chronic lower extremity edema, which is weeping without chest pain or palpitation. RESPIRATORY: The patient complains of mild shortness of breath. No associated cough or wheezes. GASTROINTESTINAL: The patient denies nausea, vomiting or abdominal pain. GENITOURINARY: The patient denies urgency or frequency. MUSCULOSKELETAL: No complaints. SKIN: There is a chronic ulceration over the left ischial region as well as the right dorsal foot. PHYSICAL EXAMINATION: VITAL SIGNS: Temperature 37.1, pulse 99, respirations 18, BP 110/59. GENERAL: This is an alert and oriented x 3, obese white female who appears much older than her stated age. HEENT: Normocephalic, atraumatic. Mucous membranes are dry. Pupils are round. Sclerae are white. NECK: Supple and nontender. LUNGS: Diminished breath sounds heard throughout. HEART: Regular, without murmur. ABDOMEN: Obese, soft, nontender. EXTREMITIES: Evaluation of the left ischial region reveals a stage 3 decubitus ulcer, which is a mix of granulation and slough. There is no significant depth. No tunneling tracking or undermining. Ulcer is otherwise intact without signs of erythema or warmth. There is minimal serosanguineous drainage without odor. Right ischial region is intact. Sacrococcygeal region is intact. Evaluation of lower extremities reveals 3+ edema with weeping, the bottom of each foot is macerated from the drainage. There is no actual open ulcerations on the bottom or the feet. On the dorsal aspect of the right foot are 2 ulcers, which are 100% slough covered limited breakdown of the subcutaneous tissue. Distal pulses are faint, but intact. Rest of the foot and toes without ulcerations. NEUROLOGIC: Cranial nerves 2-12 grossly intact. Motor and sensory are grossly intact. LABORATORY DATA: White count 13.6, hemoglobin 13.3. Sed rate 35, BUN 15, creatinine 0.7. Albumin 2.1. IMPRESSION: 1. Chronic ulceration, left ischial tuberosity region, stage 3 secondary to prolonged immobilization and sedentary lifestyle. 2. Chronic ulcer, right dorsal foot limited breakdown of subcutaneous tissue. 3. Chronic lymphedema with weeping edema in bilateral lower extremities. 4. History of pulmonary embolism. 5. Generalized debility. [address] [address] CONSULTATION Name: KELLE COVINGTON Room #: 358-P [facility] IN M.R.#: [id number] Admission: 06/03/17 Attend Phys: Remy Hogue DO Discharge: Date of : 59 Report #: [id number] 6. Protein-calorie malnutrition -- severe with an albumin of 2.1. PLAN: At this time, Aquacel Ag will be placed over the open ulcerations on the foot and the barrier cream placed on the left ischial tuberosity mixed with Silvadene cream three times daily. We will try to limit the patient's time up in the chair with air cushion due to the ischial tuberosity ulceration. The patient has difficult time sleeping in bed because of her pulmonary conditions. We will use Kerlix and Antelmo wrap from toes to feet toes to knee for control of edema. Have your legs elevated as much as possible. We will consult lymphedema to come up and wrap the legs as well. The patient has been seeing lymphedema clinic as an outpatient. Make sure we maximize the patient's oral protein supplementation as possible for healing and continue to utilize physical and occupational therapy. We will continue to follow the patient. By: 1344 1859 Dillan Babin MD /nt
--- NOTE | ~2017-06-03 | EKG ---
[place] [address] [email or web address] [place] [address] ELECTROCARDIOGRAM REPORT Name: KELLE COVINGTON Room #: 358-P ADM IN M.R.#: [id number] Admission: 06/03/17 Attend Phys: Remy Hogue DO Discharge: Date of : 59 Report #: [id number] THIS REPORT FOR: //name// [facility] Test Date: 2017-06-05 Test Time: 19:51:18 Pat Name: KELLE COVINGTON Department: Room: 358 Gender: F Motor Boss: Eleonora WU : 1955 Requested By: Carolyn Chamberlain Order Number: [id number] MD: Michael Lane Measurements Intervals [place] Rate: 91 P: 34 NH: 136 QRS: 11 QRSD: 92 T: 8 QT: 348 QTc: 429 Interpretive Statements Sinus rhythm Borderline low voltage, extremity leads Compared to ECG 06/09/2014 07:05:35 No significant change was found Electronically Signed On 06-06-2017 8:32:[address] [email or web address] <ELECTRONICALLY SIGNED> By: Michael Lane MD, [facility] 06/06/[address] MD, [facility] /EPI
--- NOTE | ~2017-06-03 | HC ---
[facility] [place] [address] CONSULTATION Name: KELLE COVINGTON Room #: 358-P ADM IN M.R.#: [id number] Admission: 06/03/17 Attend Phys: Remy Hogue DO Discharge: Date of : 59 Report #: [id number] THIS REPORT FOR: //name// CC: Jacobo Eli DO [facility] physician/PCP Remy ROBLES MD PRIMARY CARE PHYSICIAN: Sadie Robles M.D. REASON FOR CONSULTATION: History of breast cancer and now history of pulmonary embolus. HISTORY OF PRESENT ILLNESS: The patient is a 61-year-old female patient of [facility] who has a history of breast cancer, who has been on tamoxifen after receiving adjuvant chemotherapy, who was admitted because of falling at home. She had needed help to get up several times in the last month. She was up on rehabilitation, was noted to have ascites and also left pleural effusion and became progressively more short of breath and a CT chest angio yesterday that showed a non-occlusive intraluminal filling defect and pulmonary embolism in the anterior, posterior and segmental branches of the right lower lobe pulmonary arteries. Also important to note is a shrunken nodular liver with prominent varicosities, compatible with cirrhosis; also possible diffuse lytic lesion in T3; also some upper mild mediastinal adenopathy and large bilateral pleural effusions with atelectasis. There were also some ground-glass opacities throughout the aerated upper lobes bilaterally with patchy alveolar infiltrates. Note the patient is being treated for possible infection. The patient has currently been moved from a rehab down to the Med/Surg floor. At this time, she denies any headache, fevers or chills or arm or leg swelling. She is fatigued. She does have pain from her past neuropathy. She does have a sore bottom from sacral decubitus. We discussed the CAT scan results. She is aware that we are concerned about the CAT scan with regards to the liver and the T3 lesion. We will probably consider either a bone scan and/or a PET scan as she improves. At this time, I do not know whether she can lie flat for a PET scan. She has been on 10 liters of oxygen. PAST MEDICAL HISTORY: Past history, as mentioned above, is notable for the recent pulmonary emboli on the right side along with a left popliteal clot. There was also a history of recent pneumonia. Also, I believe, if I recall, she has diabetes. Also, ascites. Also, history of hypertension. 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 [address] CONSULTATION Name: KELLE COVINGTON Room #: 358-P ADM IN M.R.#: [id number] Admission: 06/03/17 Attend Phys: Remy Hogue DO Discharge: Date of : 59 Report #: [id number] MEDICATIONS: At this time in the hospital currently include the Lovenox that I just began, 120 b.i.d. instead of the heparin drip; nystatin b.i.d. topically; spironolactone 50 b.i.d.; metoprolol 25 daily; insulin 10 units b.i.d.; pantoprazole 40 daily; insulin lispro 5 units at bedtime and a.c.; levofloxacin q.24h; ipratropium and albuterol respiratory therapy; docusate 100 b.i.d. as needed; Senokot-S 1 tab daily p.r.n.; MiraLax 17 grams daily as needed; nitroglycerin p.r.n. and tamoxifen, which she was on, which I have now held. LABORATORY DATA: Lab review recently shows that the cytology from the left pleural effusion, which was 1500 mL thoracentesis, is pending. BUN of 15, creatinine of 0.7 and glucose of 226. AST 36; total bilirubin slightly high at 1.7; alkaline phosphatase 186, which is higher compared to 2015, when this was at 120 and ALT of 38. Albumin 2.1. Coags on admit had an INR of 1.2 and aPTT of 24. White count currently 13.6, hemoglobin 13.3, MCV of 90.9 and platelets of 133,000. Differential had slight increase of segmented neutrophils, no acute forms. Sed rate 35. TSH recently 4.27. Histopathology test pending. U/A for the most part negative for protein, glucose, ketones, blood and nitrite was also negative, leukocytes were negative. Blood gas pending. RADIOLOGIC STUDIES: Include the lower extremity venous ultrasound showing a non-occlusive thrombus in the left popliteal vein, left femoral vein is patent throughout and right leg was clear. CT chest, PE, abdomen and pelvis showed the [id number] bilateral pleural effusions with associated compressive atelectasis in the lower lobes bilaterally. Also, patchy alveolar infiltrates in the left lower lobe. Lymph nodes in the mediastinal are so prominent right upper peritracheal at 1.3 and right anterior epicardial at 1.3. There was apparent diffuse lytic destructive lesion involving T3. Upper abdomen shows a shrunken liver with a nodular contour with moderate upper abdominal ascites and multiple prominent venous structures in the left upper abdomen perisplenic region, likely cirrhosis with portal hypertension. ASSESSMENT AND PLAN: 1. History of breast cancer. Recent CAT scan raises a question about whether this may be recurrent. When the patient is able to, we will apply check either bone scan or PET scan. We will also await cytology from thoracentesis. In the meantime, we will hold tamoxifen given her recent clot and possible progression/recurrence of her cancer. 2. Pulmonary embolism. The patient has been falling, but I think, at this time, she needs anticoagulation, but she is symptomatic. We will change from heparin drip to Lovenox q.12h. The patient is aware of these changes. We will also limit walking activity for 2-3 days. 3. Left popliteal clot, continue monitoring. 4. Left effusion, status post 1500 mL thoracentesis. Cytology is pending. 5. Question of cirrhosis with shrunken nodular liver and questionable varices and slightly elevated bilirubin. We will consult GI for question of etiology [address] [address] CONSULTATION Name: KELLE COVINGTON Room #: 358-P [facility] IN ..#: [id number] Admission: 06/03/17 Attend Phys: Remy Hogue DO Discharge: Date of : 59 Report #: [id number] and management. 6. Possible pneumonia. Continue with ID. Currently on levofloxacin and aerosols. 7. Hypoxia. Continue oxygen replacement by combination pneumonia, effusion or pulmonary emboli. 8. Falling and weakness, rehabilitation services. 9. Protein-calorie malnutrition. Will likely need supplements. 10. Lymphedema, on hold for now. 11. Sacral ulcer decubitus. Defer to others. 12. Peripheral neuropathy, probably related to diabetes, partly due to past chemotherapy. 13. hypercalcemia - consider bisphosphonate. Continue monitoring. We will follow with you. <ELECTRONICALLY SIGNED> By: Jack Cabrera MD 06/05/17 0827 [id number] [id number] Jack Cabrera MD /nt
[2017-06-03 20:30] VITALS: BP 151/77
[~2017-06-03 21:07] MED LIST changes: +ALDACTONE25 MG PO; +COLACE100 MG PO; +DUONEB 2.5-0.5 M3 ML INH; +HEPARIN SO1000 UNIT/ IV PUSH; +LEVAQUIN 750 M750 MG PO; +NYAMYC15 GM TOP; +PROTONIX40 M1 PO; +TOPROL XL25 MG PO
[2017-06-03 23:30] VITALS: BP 113/62
[2017-06-04 03:55] VITALS: BP 125/62
[2017-06-04 08:31] VITALS: BP 115/94
[2017-06-04 12:59] VITALS: BP 110/59
[2017-06-04 16:47] LABS: HEMATOCRIT 38.2 % (37.0-47.0); HEMOGLOBIN 12.4 gm/dL (12.0-15.0); MCH 29.6 pg (26.0-34.0); MCHC 32.5 g/dL (28.0-37.0); RBC 4.2 mil/uL (4.20-5.00); RDW 19.9 % (10.5-14.5); WBC 10.5 thou/uL (4.0-11.0)
[2017-06-04 17:00] LABS: INR 1.3; PROTIME 13.4 Seconds (9.3-11.4)
[2017-06-04 17:05] LABS: ALBUMIN 1.9 g/dL (3.4-5.0); DIRECT BILIRUBIN 0.5 mg/dL (<0.1-0.3); TOTAL BILIRUBIN 1.1 mg/dL (<0.1-1.0); TOTAL PROTEIN 6.2 g/dL (6.4-8.2)
[2017-06-04 17:32] VITALS: BP 138/57
[2017-06-04 17:34] LABS: % SATURATION 29 % (20-39); IRON 47 ug/dL (50-170); TIBC 164 ug/dL (250-450)
[2017-06-04 19:48] VITALS: BP 126/65
[2017-06-04 22:10] LABS: IgG 1416 mg/dL (700-1600)
[2017-06-05 03:50] VITALS: BP 135/75
[2017-06-05 06:31] LABS: CALCIUM 11.2 mg/dL (8.5-10.1); CREATININE 0.6 mg/dL (0.6-1.0); POTASSIUM 4.5 mmol/L (3.5-5.1)
[2017-06-05 07:13] LABS: HAV IgM AB (ANTI-HAV IgM) Negative (Negative); HEPATITIS B SURFACE AG Negative (Negative); HEPATITIS C VIRUS AB <0.1 (0.0-0.9)
[2017-06-05 07:35] LABS: BASOPHILS 0.2 % (0.0-2.0); EOSINOPHILS 0.3 % (0.0-3.0); HEMATOCRIT 38.9 % (37.0-47.0); HEMOGLOBIN 12.8 gm/dL (12.0-15.0); LYMPHOCYTES 6.8 % (24.0-44.0); MCH 30.1 pg (26.0-34.0); MCHC 32.8 g/dL (28.0-37.0); MCV 91.6 fL (80.0-100.0); MONOCYTES 10.3 % (1.0-8.0); PLATELET COUNT 137 thou/uL (150-400); POLYS 82.4 % (36.0-66.0); RBC 4.25 mil/uL (4.20-5.00); RDW 19.9 % (10.5-14.5); WBC 9.7 thou/uL (4.0-11.0)
[2017-06-05 08:00] VITALS: BP 124/64
[2017-06-05 12:00] VITALS: BP 126/70
[2017-06-05 14:08] LABS: CLARITY CLOUDY; COLOR YELLOW; SOURCE LEFT THORACENTESIS; TOTAL VOLUME 60 mL
[2017-06-05 14:22] LABS: BF NUCLEATED CELLS 476; BF RBC 3239
[2017-06-05 14:27] LABS: SOURCE LEFT THORACENTESIS
[2017-06-05 15:18] LABS: BF MACROPHAGE 41; BF NEUTROPHILS 48
[2017-06-05 16:00] VITALS: BP 116/63
[2017-06-05 18:41] LABS: INR 1.3; PROTIME 13.4 Seconds (9.3-11.4)
[2017-06-05 19:02] VITALS: BP 117/66
[2017-06-06] VITALS (7 sets, daily range): BP systolic 87–136; BP diastolic 48–114
[2017-06-06 09:13] LABS: ANA INTERPRETATION Negative (Negative)
[2017-06-06 17:09] LABS: BODY FLUID AMYLASE 11 U/L (()); BODY FLUID GLUCOSE 223 mg/dL (()); BODY FLUID LDH 123 IU/L (()); BODY FLUID PROTEIN 2.2 g/dL (())
[2017-06-06 17:55] LABS: BASOPHILS 0.2 % (0.0-2.0); EOSINOPHILS 0.1 % (0.0-3.0); HEMATOCRIT 44.8 % (37.0-47.0); HEMOGLOBIN 14.5 gm/dL (12.0-15.0); LYMPHOCYTES 4.3 % (24.0-44.0); MCH 29.5 pg (26.0-34.0); MCHC 32.4 g/dL (28.0-37.0); MCV 90.9 fL (80.0-100.0); MONOCYTES 8.3 % (1.0-8.0); PLATELET COUNT 179 thou/uL (150-400); POLYS 87.1 % (36.0-66.0); RBC 4.93 mil/uL (4.20-5.00); RDW 19.7 % (10.5-14.5); WBC 13.8 thou/uL (4.0-11.0)
[2017-06-06 18:12] LABS: CALCIUM 10.9 mg/dL (8.5-10.1); CREATININE 0.9 mg/dL (0.6-1.0); POTASSIUM 4.7 mmol/L (3.5-5.1)
[2017-06-06 18:27] LABS: ANISOCYTOSIS 2+
[2017-06-07 03:48] VITALS: BP 109/59
[2017-06-07 03:54] LABS: ANION GAP < 0 mmol/L (7-16); BUN 18 mg/dL (7-18); CALCIUM 10.1 mg/dL (8.5-10.1); CHLORIDE 106 mmol/L (98-107); CO2 38 mmol/L (21-32); CREATININE 0.9 mg/dL (0.6-1.0); GLUCOSE 127 mg/dL (74-106); POTASSIUM 4.3 mmol/L (3.5-5.1); SODIUM 143 mmol/L (136-145)
[2017-06-07 04:10] LABS: ABSOLUTE NEUTROPHILS 8.8 thou/uL (1.4-8.2); BASOPHILS 0.1 % (0.0-2.0); EOSINOPHILS 0.1 % (0.0-3.0); HEMATOCRIT 36.6 % (37.0-47.0); LYMPHOCYTES 6.2 % (24.0-44.0); MCH 29.9 pg (26.0-34.0); MCHC 32.5 g/dL (28.0-37.0); MCV 91.9 fL (80.0-100.0); MONOCYTES 11.3 % (1.0-8.0); PLATELET COUNT 112 thou/uL (150-400); POLYS 82.3 % (36.0-66.0); RBC 3.99 mil/uL (4.20-5.00); RDW 19.8 % (10.5-14.5); WBC 10.7 thou/uL (4.0-11.0)
[2017-06-07 04:14] LABS: HEMOGLOBIN 11.9 gm/dL (12.0-15.0)
[2017-06-07 07:22] VITALS: BP 109/56
[2017-06-07 11:54] VITALS: BP 121/60
[2017-06-07 13:12] LABS: CERULOPLASMIN 41.3 mg/dL (19.0-39.0)
[2017-06-07 14:00] LABS: BE(vivo) 4.6 mmol/L (-2 to +3); HCO3 34.3 mmol/L (22.0-26.0); PO2 70.7 mmHg (80.0-100.0); sO2 91.1 % (92.0-98.0)
[2017-06-07 14:02] LABS: pH 7.267 (7.360-7.450)
[2017-06-07 15:52] VITALS: BP 124/76
[2017-06-07 19:11] VITALS: BP 132/73
[2017-06-08 00:35] VITALS: BP 116/63
[2017-06-08 03:25] VITALS: BP 125/66
[2017-06-08 07:27] VITALS: BP 132/70
[2017-06-08 11:30] VITALS: BP 104/69
[2017-06-08 15:08] VITALS: BP 126/70
[2017-06-08 19:20] VITALS: BP 111/58
[2017-06-09 04:00] VITALS: BP 114/64
[2017-06-09 07:04] VITALS: BP 99/59
[2017-06-09 15:03] VITALS: BP 82/39
[2017-06-09 20:00] VITALS: BP 84/48
[2017-06-10 04:25] VITALS: BP 108/45
[2017-06-10 08:30] VITALS: BP 97/40
== END 2017-06-10 18:55 | DRG 175 ==
LOC: 3W 21:07
PROVIDERS: Family Medicine; Internal Medicine Pulmonary Disease; Nurse Practitioner
PROC: 0W9B3ZX Drainage of Left Pleural Cavity, Percutaneous Approach, Diagnostic (ICD-10-PCS; principal; 2017-06-05)
PROC: 0W9G3ZX Drainage of Peritoneal Cavity, Percutaneous Approach, Diagnostic (ICD-10-PCS; 2017-06-06)
PROC: 05HY33Z Insertion of Infusion Device into Upper Vein, Percutaneous Approach (ICD-10-PCS; 2017-06-06)
DX: I26.99 Other pulmonary embolism without acute cor pulmonale (principal); L89.153 Pressure ulcer of sacral region, stage 3; L89.323 Pressure ulcer of left buttock, stage 3; J18.9 Pneumonia, unspecified organism; E43 Unspecified severe protein-calorie malnutrition; J96.02 Acute respiratory failure with hypercapnia; J96.01 Acute respiratory failure with hypoxia; J90 Pleural effusion, not elsewhere classified; R18.8 Other ascites; I82.432 Acute embolism and thrombosis of left popliteal vein; K72.90 Hepatic failure, unspecified without coma; K74.60 Unspecified cirrhosis of liver; I10 Essential (primary) hypertension; E83.52 Hypercalcemia; E11.42 Type 2 diabetes mellitus with diabetic polyneuropathy; K21.9 Gastro-esophageal reflux disease without esophagitis; E66.9 Obesity, unspecified; Z90.49 Acquired absence of other specified parts of digestive tract; Z85.3 Personal history of malignant neoplasm of breast; Z68.38 Body mass index [BMI] 38.0-38.9, adult; Z92.21 Personal history of antineoplastic chemotherapy; Z92.3 Personal history of irradiation; Z91.041 Radiographic dye allergy status; Z91.040 Latex allergy status; Z88.0 Allergy status to penicillin; Z91.048 Other nonmedicinal substance allergy status; Z90.12 Acquired absence of left breast and nipple; Z79.4 Long term (current) use of insulin; Z79.899 Other long term (current) drug therapy
CPT/HCPCS: 10779; 27000